=== PATIENT | male | born 1950 | race Hispanic/Latino ===

== ENCOUNTER 2017-09-09 07:28 | Day surgery (SDC) | payer OTHER ==
[2017-09-09] MEDS ORDERED: ECOTRIN PO NR (08:07)
[2017-09-09 08:50] LABS: Basophils # (Auto) 0.1 K/mm3 (0.0-0.1); Basophils % (Auto) 0.5 % (0.0-1.8); Hematocrit 35.7 % (35.5-45.6); Hemoglobin 12.2 gm/dl (11.8-15.2); Lymphocytes # (Auto) 0.8 K/mm3 (1.2-5.4); Lymphocytes % (Auto) 6.5 % (13.4-35.0); Mean Corpuscular HGB Conc 34 % (32-34); Mean Corpuscular Hemoglobin 31 pg (28-32); Mean Corpuscular Volume 91 fl (84-94); Monocytes # (Auto) 0.7 K/mm3 (0.0-0.8); Monocytes % (Auto) 5.7 % (0.0-7.3); Platelet Count 242 K/mm3 (140-440); Red Blood Count 3.91 M/mm3 (3.65-5.03); Red Cell Distribution Width 14.7 % (13.2-15.2)
[2017-09-09 09:00] LABS: INR 1.12 (0.87-1.13)
[2017-09-09] MEDS ORDERED: NACL 0.9% 500 ML 500 ML IV SCH (09:00)
[2017-09-09 09:04] LABS: Calcium 8.3 mg/dL (8.4-10.2)
[2017-09-09] MEDS ORDERED: HEPARIN 10,000 UNITS/10 ML ONE (09:07)
[2017-09-09] MEDS ORDERED: NITROGLYCERIN SYRINGE 3 ML ONE (09:07)
[2017-09-09] MEDS ORDERED: XYLOCAINE 2% INFILTRATI ONE (09:07)
[2017-09-09] MEDS ORDERED: CALAN ONE (09:07)
[2017-09-09] MEDS ORDERED: HEPARIN/NS 5000 UNIT/500ML(CATH LAB) 1,000 ML IR ONE (09:07)
[2017-09-09] MEDS ORDERED: SUBLIMAZE ONE (09:26)
[2017-09-09] MEDS ORDERED: VERSED ONE (09:26)
--- NOTE | 2017-09-09 10:50 | Cardiac Catherization Report ---
CARDIAC CATHETERIZATION REFERRING PHYSICIAN: Akin Willis MD INDICATION FOR PROCEDURE: The patient is a very pleasant 66-year-old gentleman with a history of worsening dyspnea on exertion and severe aortic stenosis per recent echocardiogram referred for left heart catheterization. Risks, benefits, alternatives discussed at length prior to obtaining informed consent. He does have a DYE ALLERGY, has been appropriately premedicated. PROCEDURE IN DETAIL: The patient was brought to the catheterization lab in a postabsorptive state, prepped and draped in a sterile fashion. Anthony's test of the right hand was normal. A 2 mL of 2% lidocaine was used to anesthetize the right wrist. A standard 6-Telugu hydrophilic sheath used to cannulate the right radial artery via modified Seldinger. All exchanges performed to exchange a J-tip guidewire. JL3.5 catheter used to engage the left main. No dampening or vegetation. Cineangiography performed in all projections. JR4 catheter was used to cross the aortic valve under fluoroscopic guidance. Left ventriculography performed in 30 HI and 30 GENNY projection via hand injections. Catheter flushed. Manual pullback performed with continuous pressure monitoring. Catheter used to engage the right coronary. No dampening or ventricularization. Cineangiography performed in multiple projections. Next, catheter removed from the body of wire, sheath removed. Manual pressure used to achieve hemostasis. DATA: Aortic pressure is 170. LVEDP of approximately 25 mmHg. Aortic pressure is 87 and 90 systolic, diastolic approximately 50 mmHg. The patient remained in sinus bradycardia throughout the procedure. Heart rate of 50-60. Left ventriculography revealed normal systolic performance with estimated fraction of 55-60%. CORONARY ANATOMY: This is a right dominant system. Right coronary is a large vessel, courses AV groove, distally bifurcates in the posterior and posterolateral branch, no discrete stenosis identified. Left main is without significant disease, bifurcates in left anterior descending and left circumflex. Left circumflex, moderate sized vessel, courses AV groove. No significant disease. LAD is a moderate sized vessel, courses AV groove, distally bifurcates in the posterior and posterolateral branch. There is a 40-50% mid LAD stenosis. Moderate sedation was used. I directly supervised the administration of moderate sedation with fentanyl and Versed, starting at 10:01 a.m. ending at 10:25 a.m. CONCLUSIONS: 1. Severe aortic stenosis with a xwut-zn-huaf gradient of approximately 80 mmHg and a mean gradient of 58 mmHg. 2. Kcli-ly-pcqdnkxn nonobstructive coronary artery disease with a 40-50% mid LAD stenosis. 3. Normal left ventricular systolic performance, estimated ejection fraction of 55-60%. At this point, the patient will be transferred to [facility] for aortic valve replacement, considered as an option. My findings were explained at length with the patient and family. All questions and concerns were addressed. Follow up with Mary Lowery. JOB# [id number] MARISOL/NTS
--- NOTE | 2017-09-09 14:21 | Short Stay Summary ---
Short Stay Documentation Date of service: 09/09/17 - History H&P: obtained from office - Allergies and Medications Current Medications: Allergies iodine Allergy (Verified 09/09/17 09:46) Shortness of Breath Home Medications Medication Instructions Recorded Confirmed Last Taken Type Diclofenac Dr [Voltarejimmy Dr] 75 mg PO DAILY 09/09/17 09/09/17 09/08/17 History 75mg Lisinopril [Prinivil] 10 mg PO DAILY 09/09/17 09/09/17 09/09/17 06:00 History 10mg Sulfamethoxazole/Trimethoprim 2 tab PO DAILY 09/09/17 09/09/17 09/08/17 History [Bactrim 400-80 mg Tablet] 2 tab Active Medications Sodium Chloride (Nacl 0.9% 500 Ml) 500 mls @ 50 mls/hr IV DIRECT MALLIKA Stop: 09/09/17 18:59 Last Admin: 09/09/17 09:30 Dose: 50 mls/hr - Brief post op/procedure progress note Date of procedure: 09/09/17 Pre-op diagnosis: aortic stenosis Post-op diagnosis: same Procedure: [facility] - see cath report Anesthesia: local Estimated blood loss: none Condition: stable - Disposition Disposition: [id number] ANOTHER [facility] - Discharge Diagnoses (1) Aortic stenosis, severe Status: Chronic (2) CAD (coronary artery disease) Status: Chronic Short Stay Discharge Plan Activity: advance as tolerated Wound: open to air, keep clean and dry, per your surgeon's advice Follow up with: MARIAN LOVE JR, MD [Primary Care Provider] - 7 Days
[2017-09-09 18:09] VITALS: BP 116/40
== END 2017-09-09 18:33 | disposition other institution (70) ==
LOC: CATHLABREC 07:28
PROVIDERS: ATTEND Internal Medicine
DX: I25.10 Atherosclerotic heart disease of native coronary artery without angina pectoris (principal); I35.0 Nonrheumatic aortic (valve) stenosis; I10 Essential (primary) hypertension; Z79.01 Long term (current) use of anticoagulants; Z98.890 Other specified postprocedural states; Z87.891 Personal history of nicotine dependence
CPT/HCPCS: 36415; 80048; 85025; 85610; 85730; 93005; 93010; 93458; 99156; C1894; J1644; J2250; J3010; J7040; Q9967